=== PATIENT | male | born 1995 ===

== ENCOUNTER 2022-11-16 00:41 | Inpatient (IN) | payer OTHER ==
[2022-11-16] VITALS (9 sets, daily range): BP systolic 102–122; BP diastolic 57–79; PULSE 76–84; TEMP 97.9–98.5
[~2022-11-16] VITALS: Ht 185.4 cm; Wt 76.0 kg
--- NOTE | 2022-11-16 01:35 | NUR ---
PATIENT ADMITED INTO ROOM 347 VIA EMS FROM [facility]. HOSPITALIST NOTIFIED. CARDIZEM GTT INFUSING PER TRANSFER ORDERS. TELE APPLIED.
--- NOTE | 2022-11-16 02:00 | NUR ---
Admitted to medical floor from [place]- denies chest pain, Tele on-afib/rate 80,s, VSS, Cardizem drip continues at 5mg/hr {was started at [facility] at 2340}. Will keep NPO until further orders.
[2022-11-16 04:24] LABS: TSH w REFLEX 1.792 uIU/mL (0.350-4.940)
[2022-11-16 04:25] LABS: TROPONIN-I < 0.010 ng/mL (0.00-0.033)
--- NOTE | 2022-11-16 05:30 | NUR ---
Tele called - pt has converted to NSR rate 80/min, Cony SHETTY informed- she would like a 12 lead EKG to confirm, also continue on cardizen drip at 5mg/hr, ok to change vitals to every 2 hrs at this time. Pt has had quiet night, no pain/SOB
[2022-11-16 07:24] LABS: BASO # 0.1 K/mm3 (0.0-0.2); BASO % 1.1 % (0.0-2.0); EOS # 0.2 K/mm3 (0.0-0.7); EOS % 3.1 % (0.0-4.0); GRAN # 4.1 K/mm3 (1.4-6.5); GRAN % 54.2 % (42.2-75.2); HEMATOCRIT 40.5 % (42.0-52.0); LYMPH # 2.4 K/mm3 (1.2-3.4); LYMPH % 32.4 % (20.0-51.0); MEAN CELL VOLUME 94 fl (80.0-100.0); MEAN CORPUSCULAR HEMOGLOBIN 32 pg (27-31); MEAN CORPUSCULAR HGB CONC 35 g/dl (33.0-37.0); MEAN PLATELET VOLUME 8.7 fl (7.4-10.4); MONO # 0.7 K/mm3 (0.1-0.6); MONO % 8.9 % (1.7-9.3); PLATELET COUNT 358 K/mm3 (130-400); RED BLOOD COUNT 4.32 M/mm3 (4.20-5.60); REDCELL DISTRIBUTION WIDTH-CV 10.9 % (11.5-14.5)
[2022-11-16 07:33] LABS: ANION GAP 9 mmol/L (7-16); BLOOD UREA NITROGEN 9 mg/dL (9-21); CALCIUM 9.1 mg/dL (8.4-10.2); CARBON DIOXIDE 23 mmol/L (22-29); CHLORIDE 109 mmol/L (98-107); CREATININE, serum 0.93 mg/dL (0.72-1.25); GLUCOSE 92 mg/dL (70-99); POTASSIUM 4.3 mmol/L (3.5-4.5); SODIUM 141 mmol/L (136-145)
--- NOTE | 2022-11-16 08:42 | NUR ---
PAGED DID NOT GET A REPLY SO CALLED BACK AND LEFT VOICE MAIL.
--- NOTE | 2022-11-16 09:43 | NUR ---
PT RESTING QUIETLY IN BED, DR. VALLE PAGED AND VOICE MAIL MESSAGE LEFT.
--- NOTE | 2022-11-16 10:42 | NUR ---
SW informed on this day that patient would not be discharging on this day by nurse. Nurse provided dc could be on Friday11/17/2022 or Friday11/18/2022 SW will continue to follow.
--- NOTE | 2022-11-16 10:51 | NUR ---
SW met with patient to complete intake. Patient states that he lives in [place] with spouse Annamaria [phone]. Patient does not utilize DME, is independent with ADL's and does not utilize home health services at this time. PCP is [facility], and pharmacy is [facility] as well. Patient provides spouse has been appointed as DPOA/HC, and plans to return to his home upon DC. MARK will continue to follow. DC plan: home
[2022-11-16] MEDS ORDERED: MULTAQ400 MG PO (11:15)
[2022-11-16] MEDS ORDERED: ASPIRIN 81M81 MG/TA2 PO (11:15)
--- NOTE | 2022-11-16 13:25 | NUR ---
DISCHARGE INSTRUCTIONS REVIEWED WITH PT. QUESTIONS SOLICITED AND ANSWERED. REVIEWED NEW MEDICATONSL PT LEFT UNIT AMBULATORY.
== END 2022-11-16 13:27 | disposition home or self-care (01) | DRG 310 ==
LOC: SURG 00:41
PROVIDERS: Nurse Practitioner Family; ADMIT Hospitalist
DX: I48.0 Paroxysmal atrial fibrillation (principal); I48.92 Unspecified atrial flutter; F10.90 Alcohol use, unspecified, uncomplicated; Z79.82 Long term (current) use of aspirin
CPT/HCPCS: OP